=== PATIENT | female | born 1965 | race Caucasian/White ===

== ENCOUNTER → 2017-01-06 | Outpatient (CLI) | payer BC ==
--- NOTE | 2017-01-06 16:25 | MAMMOGRAPHY REPORT ---
ULTRASOUND OF BOTH BREASTS: 01/06/2017 CLINICAL HISTORY: Follow-up of benign appearing masses identified in the 12:00 and 1:00 axes of the right breast on prior whole breast ultrasound. COMPARISON: Comparison is made to exams dated: 07/03/2016 ultrasound, 06/13/2016 mammogram, 06/06/2015 mammogram, 05/27/2014 ultrasound, 05/27/2014 mammogram, and 05/22/2012 mammogram - [facility]. FINDINGS: Targeted ultrasound was performed in the right breast 12:00 and 1:00 axes, to reevaluate the benign-appearing hypoechoic solid versus cystic masses seen on previous ultrasound. In the 12:0 0 right breast, 1 cm from the nipple, there is a lobulated circumscribed hypoechoic solid versus cys tic mass. No posterior acoustic enhancement or posterior shadowing is identified. This measures ap proximately 4.1 x 4.9 x 8.1 mm. Prior measurements were 5.1 x 4.1 x 9.9 mm. Given slight differenc es in measuring technique this is considered stable. In the 1:00 right breast, 2 cm from the nipple , there is an oval circumscribed hypoechoic solid versus cystic mass measuring 5.0 x 4.9 x 3.0 mm. Prior measurements were 4.1 x 2.8 x 5.8 mm. Given slight differences in measuring technique this is also considered stable. Another six-month follow-up targeted right breast ultrasound in the 12:00 and 1:00 axes is recommended to ensure longer stability. IMPRESSION: ACR-BI-RADS CATEGORY 3: PROBABLY BENIGN - FOLLOW-UP RECOMMENDED The benign-appearing circumscribed lobulated and oval subcentimeter hypoechoic solid versus cystic m asses in the 12:00 and 1:00 axes of the right breast are stable comparing to the prior ultrasound. Another six-month follow-up targeted ultrasound is recommended to ensure longer stability. Annual b ilateral mammography is also due at that time. These results and recommendations were discussed with the patient at the time of the exam. She tent atively scheduled the follow-up diagnostic appointment prior to leaving our department. Katherine Eastman M.D. ay/:01/06/2017 14:11:17 Attending Technologist: Sumaya YUEN(Layla)(M), [facility] [place] Operator: Dr. Katherine Eastman, [facility] letter sent: Follow Up Recommended 3 BI-RADS Code: ACR-BI-RADS Category 3: Probably Benign
== END | disposition home or self-care (01) ==
LOC: C.MAMM 13:45
PROVIDERS: ATTEND Internal Medicine
DX: N63 Unspecified lump in breast (principal)

== ENCOUNTER → 2017-07-02 | Day surgery (SDC) | payer BC ==
[2017-06-16 15:27] VITALS: BMI 24.0
[~2017-07-02] VITALS: Ht 172.7 cm; Wt 72.7 kg
[~2017-07-02] MED LIST: PROPOFOL IV EMULSION 10 MG/ML 20 ML VIAL IV ONE; SODIUM CHLORIDE 0.9% 500ML 500 ML IV ONE
--- NOTE | 2017-07-02 10:20 | Endo History and Physical ---
History & Physical Date of Service: Jul 02, 2017. Chief Complaint: Screening Referring Physician: Dr. Irving History of Present Illness 52 yo CF who presents for screening colonoscopy. Past Surgical History Hx Cardiac Surgery: No Hx Internal Defibrillator: No Hx Pacemaker: No Hx Abdominal Surgery: Yes (D&C) Hx of Implantable Prosthesis: No Hx Post-Op Nausea and Vomiting: No Hx Cancer Surgery: No Hx Thoracic Surgery: No Hx Orthopedic: No Hx Urinary Tract Surgery: No Family History None Social History Smoking Status: Never Smoker Hx Substance Use: No Hx Alcohol Use: Yes (OCCASIONAL) Allergies Coded Allergies: No Known Allergies (Unverified , 06/16/17) Current Medications Reported Home Medications Medications Dose Route/Sig Max Daily Dose Days Date Category No Active Prescriptions or Reported Medications Rx Vital Signs Weight (Kilograms): 72.73 Height (Feet): 5 Height (Inches): 8 Physical Exam General Appearance: WD/WN, no apparent distress Respiratory/Chest: Auscultation: breath sounds normal Cardiovascular: Heart Auscultation: RRR Abdomen: Bowel Sounds: normal Inspection & Palpation: soft, non-distended, no tenderness, guarding & rebound Assessment and Plan Assessment: 52 yo CF who presents for screening colonoscopy. Plan: Proceed with colonoscopy.
[2017-07-02 10:23] VITALS: Ht 172.7 cm; Wt 72.7 kg
--- NOTE | 2017-07-02 11:17 | Discharge Instructions ---
Endoscopy Patient Instructions Date / Procedure(s) Performed Jul 02, 2017. Colonoscopy Allergy Information Coded Allergies: No Known Allergies (Unverified , 07/02/17) Discharge Date / Findings Jul 02, 2017. Internal hemorrhoids Medication Instructions OK to resume all medications today as prescribed Reported Home Medications Medications Dose Route/Sig Max Daily Dose Days Date Category No Active Prescriptions or Reported Medications Rx Provider Instructions Activity Restrictions - No exercising or heavy lifting for 24 hours. - Do not drink alcohol the day of the procedure. - Do not drive a car or operate machinery until the day after the procedure. - Do not make any important decisions or sign important papers in 24 hours after the procedure. Following Day: - Return to full activity which may include returning to work/school. Diet Start your diet with liquids and light foods (jello, soup, juice, toast). Then eat your usual diet if not nauseated. Treatment For Common After Affects For mild abdominal pain, bloating, or excessive gas: - Rest - Eat lightly - Lie on right side Follow-Up Information Follow-up with Dr. Irving as scheduled Anesthesia Information What You Should Know You have had a procedure that required some medicine to reduce anxiety and discomfort. This treatment is called moderate sedation. After receiving the treatment, you may be sleepy, but you will be able to breathe on your own. The effects of the treatment may last for several hours. Follow these instructions along with Activity/Diet recommendations noted above: * Do NOT do anything where dizziness or clumsiness would be dangerous. * Rest quietly at home today, then you can be up and about tomorrow. * Have a responsible person stay with you the rest of today. * You may have had an I.V. today. If so, you may take the dressing off later today. Recommendations Call your doctor if: * Trouble breathing * Continuous vomiting for more than 24 hours * Temperature above 101 degrees * Severe abdominal pain or bloating * Pain not relieved by pain medicine ordered * There is increased drainage or redness from any incision * A large amount of rectal bleeding greater than 2-3 tablespoons. (If you had a polyp/s removed or have hemorrhoids, a small amount of blood - from the rectum is to be expected.) * You have any unanswered questions or concerns. IN THE EVENT OF A SERIOUS EMERGENCY, GO TO THE NEAREST EMERGENCY ROOM Your discharge instructions were prepared by provider Tristin Wallace. Patient Instructions Signature Page Mattie Carl Patient (or Guardian) Signature/Date: I have read and understand the instructions given to me by my caregivers. Caregiver/RN/Doctor Signature/Date: The above-named patient and/or guardian has received patient instructions on this date. + Original Patient Signature Page (only) stays with chart. Please make copy for patient.
--- NOTE | 2017-07-02 11:25 | GI REPORT ---
Procedure Date: 07/02/2017 10:34 AM Procedure: Colonoscopy Indications: Screening for colorectal malignant neoplasm Medicines: Monitored Anesthesia Care Complications: No immediate complications. Estimated Blood Loss: Estimated blood loss: none. Procedure: Pre-Anesthesia Assessment: - Prior to the procedure, a History and Physical was performed, and patient medications and allergies were reviewed. The patient's tolerance of previous anesthesia was also reviewed. The risks and benefits of the procedure and the sedation options and risks were discussed with the patient. All questions were answered, and informed consent was obtained. Prior Anticoagulants: The patient has taken no previous anticoagulant or antiplatelet agents. ASA Grade Assessment: II - A patient with mild systemic disease. After reviewing the risks and benefits, the patient was deemed in satisfactory condition to undergo the procedure. After I obtained informed consent, the scope was passed under direct vision. Throughout the procedure, the patient's blood pressure, pulse, and oxygen saturations were monitored continuously. The Scope was introduced through the anus and advanced to the terminal ileum. The colonoscopy was performed without difficulty. The patient tolerated the procedure well. The quality of the bowel preparation was good. The terminal ileum, ileocecal valve, appendiceal orifice, and rectum were photographed. Findings: Non-bleeding internal hemorrhoids were found during retroflexion. The hemorrhoids were small. The exam was otherwise without abnormality. Impression: - Non-bleeding internal hemorrhoids. - The examination was otherwise normal. - No specimens collected. Recommendation: - Resume previous diet. - Continue present medications. - Repeat colonoscopy for surveillance based on pathology results. - Return to primary care physician as previously scheduled. Tristin Wallace, 07/02/2017 11:24:47 AM This report has been signed electronically. Note Initiated On: 07/02/2017 10:34 AM I attest to the content of the Intraoperative Record and orders documented therein, exceptions below
[2017-07-02 11:44] VITALS: BP 136/74; PULSE 57; O2SAT 100
--- NOTE | 2017-07-02 12:08 | Anesthesiology Progress Note ---
Anesthesia Post Op Note Date & Time Jul 02, 2017 at 12:08 Vital Signs Pain Intensity: 0 Vital Signs Past 12 Hours Date Time Temp Pulse Resp B/P (MAP) Pulse Ox O2 Delivery O2 Flow Rate FiO2 07/02/17 11:44 57 18 136/74 (94) 100 Room Air 07/02/17 11:29 64 18 122/75 (91) 98 Room Air 07/02/17 11:14 77 18 118/70 (86) 97 Room Air 07/02/17 10:30 37 69 18 116/60 (78) 99 Room Air Notes Mental Status: alert / awake / arousable, participated in evaluation Pt Amnestic to Procedure: Yes Nausea / Vomiting: adequately controlled Pain: adequately controlled Airway Patency, RR, SpO2: stable & adequate BP & HR: stable & adequate Hydration State: stable & adequate Anesthetic Complications: no major complications apparent
== END | disposition home or self-care (01) ==
LOC: C.GI 09:53
PROVIDERS: ATTEND Internal Medicine
DX: Z12.11 Encounter for screening for malignant neoplasm of colon (principal); Z12.12 Encounter for screening for malignant neoplasm of rectum; K64.8 Other hemorrhoids; Z68.24 Body mass index [BMI] 24.0-24.9, adult; Z98.890 Other specified postprocedural states

== ENCOUNTER → 2017-07-10 | Outpatient (CLI) | payer BC ==
--- NOTE | 2017-07-10 13:55 | MAMMOGRAPHY REPORT ---
BILATERAL DIGITAL DIAGNOSTIC MAMMOGRAM TOMOSYNTHESIS WITH CAD AND TARGETED RIGHT ULTRASOUND: 07/10/20 17 CLINICAL HISTORY: Six-month follow-up of right breast masses. Due for routine mammography of the lef t breast. TECHNIQUE: Breast tomosynthesis in addition to standard 2D mammography was performed. Current study was also evaluated with a Computer Aided Detection (CAD) system. Bilateral CC and MLO 2-D and tomosy nthesis images were obtained. COMPARISON: Comparison is made to exams dated: 01/06/2017 ultrasound, 07/03/2016 ultrasound, 06/13/2016 mammogram, 06/06/2015 mammogram, 05/27/2014 ultrasound, and 05/27/2014 mammogram - [facility]. BREAST COMPOSITION: The tissue of both breasts is extremely dense, which lowers the sensitivity of m ammography. FINDINGS: There are no suspicious masses, calcifications, or areas of architectural distortion noted in either breast. There has been no significant interval change compared to prior exams. Scattered bilateral benign-appearing calcifications are not significantly changed. Targeted ultrasound was performed of the area of the previously seen right breast masses for which fo llow-up is recommended. In the right breast at 12:00 periareolar region, there is an oval nearly ane choic circumscribed 7 x 3 x 7 mm mass, which is benign and likely represents a cyst versus focal duct ectasia. In the right breast at 12:00, 3 cm from the nipple, there is a circumscribed anechoic 9 x 5 x 6 mm mass. This is stable in size and appearance dating back to the June 2016 exam where the mass measured 10 x 5 x 4 mm (previously labeled as right 12:00 1 cm from the nipple). Given the stab ility and benign morphology, the mass is benign and likely represents a cyst. In the right breast at 1:00, 2 cm from the nipple, there is a circumscribed isoechoic 5 x 6 x 3 mm mass, also unchanged christianne ing back to the June 2016 exam when accounting for differences in measurement technique. During r eal-time imaging, the mass has the appearance of a normal fat lobule. Given the benign morphology an d stability, the mass is considered benign. No suspicious masses are evident. IMPRESSION: ACR BI-RADS CATEGORY 2: BENIGN, TARGETED ULTRASOUND ACR BI-RADS CATEGORY 2: BENIGN The benign-appearing circumscribed masses in the right 12 and 1:00 breast are stable dating back to t June 2016 exam, and are considered benign given the benign morphology and stability. There is no mammographic or targeted sonographic evidence of malignancy. A 1 year screening mammogram is recom mended. The patient has been verbally notified of the results. Approximately 10% of breast cancers are not detected with mammography. A negative mammographic report should not delay biopsy if a clinically suggestive mass is present. Carito Deluca M.D. ah/:07/10/2017 08:28:15 Chief Deputy Clerk/Bailiff: Sonia MCRAE)(Lori), [facility] letter sent: Normal 1/2 BI-RADS Code: ACR BI-RADS Category 2: Benign Ultrasound BI-RADS: ACR BI-RADS Category 2: Benign
== END | disposition home or self-care (01) ==
LOC: C.MAMM 07:46
PROVIDERS: ATTEND Internal Medicine
DX: R92.2 Inconclusive mammogram (principal); N63.0 Unspecified lump in unspecified breast

== ENCOUNTER → 2018-02-12 | Outpatient (CLI) | payer BC ==
[2018-02-12 10:01] LABS: BLOOD UREA NITROGEN 17 mg/dl (7-18); CALCIUM 8.8 mg/dl (8.5-10.1); CARBON DIOXIDE 31 mmol/L (21-32); CHOLESTEROL 150 mg/dl (0-200); CREATININE 0.79 mg/dl (0.60-1.20); GLUCOSE 88 mg/dl (70-99); LDL CHOLESTEROL CALCULATED 63 mg/dl; POTASSIUM 3.8 mmol/L (3.5-5.1); SODIUM 142 mmol/L (136-145)
== END | disposition home or self-care (01) ==
LOC: C.LAB1850 07:13
PROVIDERS: ATTEND Internal Medicine
DX: Z13.220 Encounter for screening for lipoid disorders (principal); Z13.1 Encounter for screening for diabetes mellitus; E55.9 Vitamin D deficiency, unspecified